=== PATIENT | male | born 1985 | race Caucasian/White ===

== ENCOUNTER 2017-12-08 10:47 | Emergency (ER) | payer OTHER, SELFPAY ==
[2017-12-08] MEDS: IV NORMAL SALINE 1000ML BAG 1,000 ML IV ×2 (11:30)
[2017-12-08] MEDS: KETOROLAC 30 MG/ML INJ. IV ×2 (11:30)
[2017-12-08] MEDS: ONDANSETRON PF 4 MG/2 ML VIAL. IV ×2 (11:30)
[2017-12-08] MEDS: FAMOTIDINE 20 MG/2 ML VIAL IVP ×2 (11:30)
[2017-12-08 11:42] LABS: BASO % 0 % (0-3); EOS # 0.1 x10^3/uL (0.0-0.7); EOS % 1 % (0-3); HEMATOCRIT 48.6 % (39.0-53.0); HEMOGLOBIN 16.3 g/dL (13.0-17.5); LYMPH # 0.4 x10^3/uL (1.0-4.8); LYMPH % 3 % (24-48); MEAN CORPUSCULAR HEMOGLOBIN 31 pg (25-35); MEAN CORPUSCULAR HGB CONC 34 g/dL (31-37); MEAN CORPUSCULAR VOLUME 92 fL (79-100); MONO # 0.4 x10^3/uL (0.0-1.1); MONO % 3 % (0-9); NEUT # 11.5 x10^3uL (1.8-7.7); NEUT % 93 % (31-73); PLATELET COUNT 337 x10^3/uL (140-400); RED BLOOD COUNT 5.27 x10^6/uL (4.30-5.70); RED CELL DISTRIBUTION WIDTH 12.9 % (11.5-14.5); WHITE BLOOD COUNT 12.4 x10^3/uL (4.0-11.0)
[2017-12-08 11:43] LABS: ANION GAP 5 (6-14); BLOOD UREA NITROGEN 14 mg/dL (8-26); BUN/CREATININE RATIO 18 (6-20); CARBON DIOXIDE 31 mmol/L (21-32); CHLORIDE 101 mmol/L (98-107); CREATININE 0.8 mg/dL (0.7-1.3); GFR 113.5; GLUCOSE 103 mg/dL (70-99); POTASSIUM 3.8 mmol/L (3.5-5.1); SODIUM 137 mmol/L (136-145)
[2017-12-08 11:49] LABS: ALBUMIN 4.2 g/dL (3.4-5.0); ALBUMIN/GLOBULIN RATIO 1.3 (1.0-1.7); ALK PHOS 56 U/L (46-116); ALT (SGPT) 33 U/L (16-63); AST (SGOT) 20 U/L (15-37); LIPASE 72 U/L (73-393); TOTAL BILIRUBIN 0.8 mg/dL (0.2-1.0); TOTAL PROTEIN 7.5 g/dL (6.4-8.2)
[2017-12-08 11:49] LABS: ETHANOL < 10 mg/dL (0-10)
[2017-12-08 11:53] LABS: ADD MAN DIFF? YES
[2017-12-08 12:02] LABS: INFLUENZA A PATIENT NEGATIVE (NEGATIVE); INFLUENZA B PATIENT NEGATIVE (NEGATIVE); OBC FLU VALID
[2017-12-08 13:02] LABS: BILIRUBIN,URINE NEGATIVE (NEG); CLARITY,URINE CLEAR; COLOR,URINE YELLOW; GLUCOSE,URINE NEGATIVE (NEG); NITRITE,URINE NEGATIVE (NEG); PROTEIN,URINE NEGATIVE (NEG-TRACE); UROBILINOGEN,URINE 0.2 mg/dL (0.2 mg/dL)
[2017-12-08 13:09] LABS: BARBITURATES NEG (NEG); BENZODIAZEPINES NEG (NEG); CANNABINOIDS POS (NEG); COCAINE NEG (NEG); METHADONE NEG (NEG); OPIATES NEG (NEG); PHENCYCLIDINE NEG (NEG)
[2017-12-08 13:10] LABS: AMPHETAMINE/METHAMPHETAMINE NEG (NEG); ETHANOL, URINE NEG (NEG)
[2017-12-08 13:21] LABS: BACTERIA,URINE 0 /HPF (0-FEW); RBC,URINE 0 /HPF (0-2); SQUAMOUS EPITHELIAL CELL,UR OCC /LPF
[2017-12-08 14:19] LABS: % BANDS 16 % (0-9); % LYMPHS 1 % (24-48); % MONOS 4 % (0-10); % SEGS 79 % (35-66)
[2017-12-08 14:26] LABS: PLT ESTIMATE ADEQUATE (ADEQUATE); TOXIC GRANULATION SLIGHT
== END 2017-12-08 12:47 | disposition home or self-care (01) ==
LOC: ER 10:47
DX: T62.8X1A Toxic effect of other specified noxious substances eaten as food, accidental (unintentional), initial encounter (principal); R11.2 Nausea with vomiting, unspecified; R19.7 Diarrhea, unspecified; F12.10 Cannabis abuse, uncomplicated; Y92.89 Other specified places as the place of occurrence of the external cause
CPT/HCPCS: 36415; 80053; 80307; 81001; 83690; 85007; 85025; 87804; 87804-59; 96361; 96374; 96375; 99284-25; G0480; J1885; J2405; J7030; S0028